=== PATIENT | female | born 1970 | race Caucasian/White ===

== ENCOUNTER → 2018-01-26 | Day surgery (SDC) | payer OTHER ==
[~2018-01-26] MED LIST: AMITRIPTYLINE100 MG PO; APAP650 PO; ASPIR 8181 MG PO; CARAFATE 1 GM TA1 G1 PO; COLESTIPOL HCL1 G1 PO; ERGOCALCIF50000 UNIT PO; FLOMAX0.4 MG PO; GABAPENTIN 100100 MG PO; IRON325 PO; MIDODRINE HCL 55 M1 PO; NEVIRAPINE ER400 MG PO; PRILOSEC 20 MG20 MG PO; PROTONIX40 M1 PO; REGLAN 10 MG TA10 MG PO; SODIUM BICARBO650 M3 PO; SYNTHROID50 MCG PO; VANCOCIN 125 M125 M1 PO; ZANTAC 150MG T150 MG PO; ZINC SULFATE 2220 M1 PO
[2018-01-26 07:05] LABS: HEMATOCRIT 25.7 % (37.0-47.0); HEMOGLOBIN 8.5 gm/dL (12.0-15.0); MCH 28.6 pg (26.0-34.0); MCV 86.7 fL (80.0-100.0); MPV 6.2 fl. (7.2-11.1); RBC 2.96 mil/uL (4.20-5.00); RDW-CV 14.3 % (10.5-14.5); WBC 8.8 thou/uL (4.0-11.0)
[2018-01-26 07:15] LABS: CALCIUM 8.3 mg/dL (8.5-10.1); CREATININE 3.8 mg/dL (0.6-1.3)
[2018-01-26 07:20] LABS: TOTAL BILIRUBIN 0.2 mg/dL (<0.1-1.0); TOTAL PROTEIN 7.5 g/dL (6.4-8.2)
--- NOTE | 2018-01-26 11:53 | EKG ---
[place] [address] ELECTROCARDIOGRAM REPORT Name: SUKHI VIDALLL Room: [facility]#: [id number] Admission: 01/26/18 Attend Phys: Ryan Valenzuela DO Discharge: Date of : 72 Report #: [id number] THIS REPORT FOR: //name// [facility] Test Date: 2018-01-26 Test Time: 07:19:23 Pat Name: CASSIDY VIDAL Department: Room: Gender: F [employer] Operator: 28 : 1970 Requested By: Ryan Valenzuela Order Number: [id number] Reading MD: Armando Zuniga Measurements Intervals [place] Rate: 91 P: 69 DC: 170 QRS: 50 QRSD: 111 T: 56 QT: 400 QTc: 493 Interpretive Statements Sinus rhythm nonspecific st changes Borderline prolonged QT interval No previous ECG available for comparison Electronically Signed On 01-26-2018 11:53:17 CDT by Armando Zuniga [email or web address] <ELECTRONICALLY SIGNED> By: Armando Zuniga MD, [facility] 01/26/18 1153 0719 0719 Armando Zuniga MD, FACC /EPI
--- NOTE | 2018-01-28 07:56 | OP ---
[address] [address] OPERATIVE REPORT Name: CASSIDY VIDAL Room: [facility]#: [id number] Admission: 01/26/18 Attend Phys: Ryan Valenzuela DO Discharge: Date of : 72 Report #: [id number] THIS REPORT FOR: //name// CC: Ryan Arndt DATE OF SERVICE: 01/26/2018 PREOPERATIVE DIAGNOSIS: Chronic kidney disease. POSTOPERATIVE DIAGNOSIS: Chronic kidney disease. OPERATION: Creation of left radiocephalic arteriovenous fistula SURGEON: Ryan Valenzuela DO. FINDING FASTENER: SALOMON Whitman. ANESTHESIA: Sedation with local. ESTIMATED BLOOD LOSS: 25 mL. FLUIDS: 250 crystalloid. URINE OUTPUT: None. SPECIMENS: None. COMPLICATIONS: None. FINDINGS: The left cephalic vein at the wrist dilated up to 3.5 mm. This was the largest dilator accepted. The radial artery was small, but did accept a 2 mm coronary dilator. There was audible bruit within the cephalic vein up the arm with the Doppler that augmented with proximal radial artery compression, had a good distal radial artery Doppler signal that augmented with fistula compression. CLINICAL HISTORY: The patient is a 47-year-old woman with chronic kidney disease, nearing end-stage renal disease. She is in need of intravenous access. She is seen by my partner, Dr. Brian, in the office and set up for left radiocephalic arteriovenous fistula, was presented today for the same. DETAILS OF PROCEDURE: After informed consent was obtained, the patient was taken to the operating room and placed in the OR bed in supine position. She was administered sedation by the anesthesia team. Left upper extremity was prepped and draped in usual sterile fashion[place] [address] OPERATIVE REPORT Name: SHIRINDANIELCASSIDY Room: [facility].#: [id number] Admission: 01/26/18 Attend Phys: Ryan Valenzuela DO Discharge: Date of : 72 Report #: [id number] identifying correct patient and procedure. After infiltrating the skin and subcutaneous tissues at the wrist with local anesthetic, the skin was incised. Dissection was carried down both sharply and with electrocautery. The cephalic vein was identified. Multiple side branches were ligated between silk ties and divided. I then mobilized as much length proximally and distally in the cephalic vein as I could from within the incision. This was then controlled with Silastic vessel loop. I then turned my attention, dissected out the left radial artery, is noted to be fairly small in caliber, but soft. I then controlled this proximally and distally with Silastic vessel loops in Obrien fashion, then administered 5000 units of intravenous heparin. This was allowed to circulate for 3 minutes. I then transected the vein distally, created a vein arenas, dilated up to the coronary dilators again up to 3.5 mm and flushed with heparinized saline and marked it to prevent axial rotation. I then occluded the radial artery, made a longitudinal arteriotomy and extended with Obrien scissors. I then passed 1.5 mm and 2 mm coronary dilators proximally and distally to the radial artery and accepted the 2 mm without issue. I then performed end-to-side anastomosis with running 7-0 Prolene suture. Prior to completion of the suture line, the artery was allowed to forward and backbleed. The vein back bled as well. The anastomosis was flushed with heparinized saline, restored flow first up the fistula and then distally to the hand. At this point, Doppler interrogation confirmed a bruit in the cephalic vein in the mid forearm that augmented with proximal radial artery compression, and a good multiphasic distal radial artery Doppler signal that augmented with fistula compression. At this point, I then ensured hemostasis, and the wound irrigated with antibiotic solution and closed in layers with 3-0 Vicryl and 4-0 Monocryl in the skin. Dermabond was applied. All sponge, sharp and instrument counts reported correct x 2. She tolerated the procedure well and was transferred to recovery room in stable condition. <ELECTRONICALLY SIGNED> By: Ryan Valenzuela DO 01/28/18 0756 0943 [id number] Valenzuela DO /nt
== END | disposition home or self-care (01) ==
LOC: M.SUR 06:28 → M.OT 08:01 → M.SUR 08:50
PROVIDERS: Surgery
DX: N18.9 Chronic kidney disease, unspecified (principal); Z88.8 Allergy status to other drugs, medicaments and biological substances; Z79.899 Other long term (current) drug therapy; Z79.82 Long term (current) use of aspirin

== ENCOUNTER → 2018-06-16 | Outpatient (CLI) | payer OTHER, MEDICAID ==
[~2018-06-16] VITALS: Ht 160 cm; Wt 83.9 kg
[2018-06-16 11:56] VITALS: BP 148/88
[2018-06-16 12:17] LABS: HEMOGLOBIN 10.3 gm/dL (12.0-15.0); MCH 30.2 pg (26.0-34.0); MCHC 33.2 g/dL (28.0-37.0); MCV 90.9 fL (80.0-100.0); MPV 7.3 fl. (7.2-11.1); RBC 3.41 mil/uL (4.20-5.00); RDW-CV 15.3 % (10.5-14.5)
[2018-06-16 12:24] LABS: CALCIUM 8.7 mg/dL (8.5-10.1); CREATININE 3.3 mg/dL (0.6-1.3); POTASSIUM 4.7 mmol/L (3.5-5.1)
[2018-06-16 12:25] LABS: APTT 32.3 Seconds (25.0-31.3); INR 0.9; PROTIME 9.2 Seconds (9.20-11.50)
[2018-06-16 12:28] LABS: ALBUMIN 2.8 g/dL (3.4-5.0); TOTAL BILIRUBIN 0.1 mg/dL (<0.1-1.0); TOTAL PROTEIN 7.6 g/dL (6.4-8.2)
--- NOTE | 2018-06-17 08:03 | OP ---
[address] [address] OPERATIVE REPORT Name: CASSIDY VIDAL Room: [facility]#: [id number] Admission: 06/16/18 Attend Phys: Ryan Valenzuela DO Discharge: Date of : 72 Report #: [id number] THIS REPORT FOR: //name// CC: Ryan Arndt DATE OF SERVICE: 06/16/2018 PREOPERATIVE DIAGNOSES: Chronic kidney disease with previous left radiocephalic fistula creation that has been poorly matured. POSTOPERATIVE DIAGNOSES: Chronic kidney disease with previous left radiocephalic fistula creation that has been poorly matured. OPERATION: 1. Ultrasound-guided access to the left radiocephalic fistula in a retrograde fashion. 2. Left upper extremity fistulogram. 3. Angioplasty of the cephalic vein and radial artery anastomosis. SURGEON: Ryan Valenzuela DO. APPRAISAL COORDINATOR: SALOMON Disla. ANESTHESIA: Sedation with local. ESTIMATED BLOOD LOSS: Probably 100 mL. FLUIDS: 200 crystalloid. SPECIMENS: None. IMPLANTS: None. COMPLICATIONS: None. FINDINGS: Ultrasound demonstrated patent fistula circuit but what appeared to be a severe juxta-anastomotic stenosis. Initial fistulogram confirmed the patent fistula circuit and again, she had a severe juxta-anastomotic stenosis. There is otherwise really no cephalic vein outflow stenosis. After angioplasty of the radial artery anastomosis and the cephalic vein to the juxta-anastomotic region, there was improved flow and thrill within the fistula. CLINICAL HISTORY: The patient is a 48-year-old woman with some chronic kidney disease. Previously had a left radiocephalic fistula created in anticipation of future dialysis needs. This has been slow to mature. I am asked to perform a [address] [address] OPERATIVE REPORT Name: MARCYCASSIDY Room: [facility]#: [id number] Admission: 06/16/18 Attend Phys: Ryan Valenzuela DO Discharge: Date of : 72 Report #: [id number] fistulogram to aid in maturation of the fistula. DESCRIPTION OF PROCEDURE: After informed consent was obtained, the patient was taken to the operative suite, placed on the angio bed in supine position. Left arm was prepped and draped in usual sterile fashion. A full timeout was performed identifying correct patient and procedure. Using ultrasound guidance, the cephalic vein was accessed in the upper forearm in a retrograde fashion. The ultrasound images were preserved. Using Seldinger technique, a microwire and microsheath were placed, ultimately upsized to a 6-Latvian sheath over a J-wire. I then performed a left upper extremity fistulogram with the findings noted above. I was then able to navigate a Glidewire ultimately across the anastomosis into the radial artery and confirmed imaging within the radial artery and patency of the fistula circuit. I then replaced the wire and then serially angioplastied the fistula into the radial artery, first with a 3-mm and 4-mm balloon crossing the anastomosis. Again, this was in the proximal radial artery. I then angioplastied the juxta-anastomotic portion of the fistula with a 4-mm and a 5-mm Ultraverse balloon. Followup imaging demonstrated good result with some minimal residual stenosis. There seemed to be improved flow through the fistula and had improved thrill as well. Satisfied with the result, the 4-0 Monocryl pursestring suture was placed around the sheath. The wire and the sheath removed and a sterile dressing was applied. All sponge, sharp and instrument counts reported as correct x 2. She tolerated the procedure well and was transferred to recovery in stable condition. <ELECTRONICALLY SIGNED> By: Ryan Valenzuela DO 06/17/18 0803 1430 [id number] Valenzuela DO /nt
== END | disposition home or self-care (01) ==
LOC: M.INT 11:19
PROVIDERS: Surgery
DX: T82.858A Stenosis of other vascular prosthetic devices, implants and grafts, initial encounter (principal); E11.22 Type 2 diabetes mellitus with diabetic chronic kidney disease; N18.6 End stage renal disease; Z87.891 Personal history of nicotine dependence; Z88.8 Allergy status to other drugs, medicaments and biological substances; Z79.82 Long term (current) use of aspirin; Z79.899 Other long term (current) drug therapy; Y83.8 Other surgical procedures as the cause of abnormal reaction of the patient, or of later complication, without mention of misadventure at the time of the procedure

== ENCOUNTER → 2018-08-28 | Outpatient (CLI) | payer OTHER, MEDICAID ==
[2018-08-28 10:24] LABS: CREATININE 4.7 mg/dL (0.6-1.3); POTASSIUM 4.4 mmol/L (3.5-5.1)
== END ==
LOC: M.LAB 08:03
PROVIDERS: Student in an Organized Health Care Education/Training Program
DX: Z87.448 Personal history of other diseases of urinary system (principal)